=== PATIENT | male | born 1980 | race Caucasian/White ===

== ENCOUNTER 2020-08-21 19:14 | Emergency (ER) | payer MEDICARE, MEDICAID ==
--- NOTE | 2020-08-21 19:44 | EDM.PDOC ---
ED HPI GENERAL MEDICAL PROBLEM - General Chief Complaint: ENT Problem Stated Complaint: tooth pain Time Seen by Provider: 08/21/20 19:30 Source of Information: Reports: Patient History Limitations: Reports: No Limitations - History of Present Illness INITIAL COMMENTS - FREE TEXT/NARRATIVE: He presents to the emergency department complaining of a toothache. He has constant deep aching severe pain in the right upper jaw anteriorly. Pain is been present for 3 days. He talked to a local dentist and has an appointment on August 29. He has been taking some ibuprofen which does help the pain somewhat. Also has been gargling with salt water. No fever or chills. No injury that he is aware of. Is also complaining of a rash on the scrotum. It has been present for about 3 weeks. He has tried some hydrocortisone cream on it without improvement. He is otherwise without acute concerns. Upper Tooth/Teeth Pain Score (Numeric/FACES): 6 - Related Data Allergies Allergy/AdvReac Type Severity Reaction Status Date / Time Penicillins Allergy Rash Verified 08/21/20 19:26 Home Meds: Home Meds Albuterol [Proventil HFA] 2 puff INH Q4H PRN 08/21/20 [History] Fluticasone Propionate [Flonase] 1 spray NASBOTH DAILY 08/21/20 [History] Pramipexole [Mirapex] 0.25 mg PO DAILY 08/21/20 [History] amLODIPine [Norvasc] 2.5 mg PO DAILY 08/21/20 [History] lisinopriL [Lisinopril] 40 mg PO DAILY 08/21/20 [History] ED ROS GENERAL - Review of Systems Review Of Systems: See Below Constitutional: Denies: Fever, Chills HEENT: Reports: Dental Pain. Denies: Eye Pain Respiratory: Denies: Shortness of Breath, Cough Cardiovascular: Denies: Chest Pain, Palpitations GI/Abdominal: Denies: Abdominal Pain, Nausea, Vomiting : Denies: Dysuria, Frequency, Urgency Skin: Reports: Rash Neurological: Denies: Confusion, Dizziness Psychiatric: Denies: Anxiety, Depression ED EXAM, GENERAL - Physical Exam Exam: See Below Exam Limited By: No Limitations General Appearance: Alert, WD/WN, No Apparent Distress Throat/Mouth: Other (Lips are unremarkable. He does have mild swelling and increased erythema in the right upper jaw anteriorly with significant tenderness in the same area. He is missing multiple teeth. Oropharynx is unremarkable.) Neck: No: Lymphadenopathy (L), Lymphadenopathy (R) Respiratory/Chest: No Respiratory Distress, Lungs Clear, Normal Breath Sounds Cardiovascular: Regular Rate, Rhythm, No Murmur (Male) Exam: Other (Uncircumcised. No lesions on the penis. He does have red diffuse macular rash on the edges of the scrotum on both sides. No discrete lesions.) Course - Vital Signs Last Recorded V/S: Last Vital Signs Temp 36.4 C 08/21/20 19:15 Pulse 84 08/21/20 19:15 Resp 14 08/21/20 19:15 BP 161/96 H 08/21/20 19:15 Pulse Ox 100 08/21/20 19:15 Departure - Departure Time of Disposition: 19:50 Disposition: Home, Self-Care 01 Condition: Good Clinical Impression: Tooth ache, Tinea cruris - Discharge Information Additional Instructions: Swish and spit with warm salt water several times daily. Clindamycin 150 mg 1 tablet 4 times daily. Should get some Orajel to apply to the tooth. Ibuprofen 800 mg 3 times daily with food. Tylenol as needed for additional pain control. Follow-up with a dentist as soon as possible. [id number] antifungal cream. apply to the scrotum 2-3 times daily. Follow-up as needed. Sepsis Event Note (ED) - Evaluation Sepsis Screening Result: No Definite Risk - Focused Exam Vital Signs: Vital Signs Temp Pulse Resp BP Pulse Ox 08/21/20 19:15 36.4 C 84 14 161/96 H 100
== END 2020-08-21 19:55 | disposition home or self-care (01) ==
LOC: LL.ED 19:14
DX: K08.89 Other specified disorders of teeth and supporting structures (principal); B35.6 Tinea cruris; Z88.0 Allergy status to penicillin
CPT/HCPCS: 99282; 99283